=== PATIENT | male | born 1970 | race Caucasian/White ===

== ENCOUNTER → 2021-10-09 | Outpatient (CLI) | payer OTHER ==
--- NOTE | 2021-10-09 20:12 | CT ---
EXAMINATION TYPE: CT abdomen pelvis wo con DATE OF EXAM: 10/09/2021 COMPARISON: None available HISTORY: HEMATURIA, RLQ PAIN, RENAL STONE CT DLP: 1479.7 mGycm Automated exposure control for dose reduction was used. TECHNIQUE: Helical acquisition of images was performed from the lung bases through the pelvis. FINDINGS: LUNG BASES: COPD changes. LIVER/GB: Slightly nodular outline of the liver, please correlate with liver function tests and hepat ic viral serology. No definite hepatic focal lesion by this nonenhanced CT scan. Suspected gallbladde r sludge, please correlate with ultrasound results. PANCREAS: No significant abnormality is seen. SPLEEN: No significant abnormality is seen. ADRENALS: No significant abnormality is seen. KIDNEYS: 6 mm stone is seen within the right renal pelvis with surrounding soft tissue thickening and possibly urothelial thickening, likely chronic. Minimal prominence of the right renal collecting sys tem. Questionable tiny 2 mm left lower pole nonobstructing calculus. No other definite radiodense marj al, ureteric or urinary bladder calculi. No hydroureter or left sided hydronephrosis. Grossly unremar kable urinary bladder. Prostatic concretion. Unremarkable seminal vesicles. FREE AIR: No free air is visualized ADENOPATHY: No pathologically enlarged lymph nodes. OSSEOUS STRUCTURES: No gross aggressive bone lesion. BOWEL: Gastric sleeve surgery with fibrotic changes/fat stranding seen along the lateral aspect of t he stomach. Unremarkable duodenum and small bowel. Significant fecal loading of the colon suggestive of constipation, which may mask a small colonic lesion. OTHER: Scattered arterial atherosclerotic calcifications. No sizable ascites. IMPRESSION: 6 mm stone is seen within the right renal pelvis with mild dilatation of the right renal collecting s ystem and apparent soft tissue thickening/fat stranding surrounding the stone, possibly representing chronic stone. Associated chronic infection or urothelial lesion can't be excluded by this nonenhance d CT scan. Recommend correlation with urinalysis results including cytology. Other incidental finding s as described above.
== END | disposition home or self-care (01) ==
LOC: RADCTMAIN 18:17
PROVIDERS: ATTEND Family Medicine
DX: N20.0 Calculus of kidney (principal); N28.89 Other specified disorders of kidney and ureter; R31.9 Hematuria, unspecified
CPT/HCPCS: 74176

== ENCOUNTER → 2023-01-22 | Outpatient (CLI) | payer OTHER ==
--- NOTE | 2023-01-22 15:59 | CT ---
EXAMINATION TYPE: CT abdomen pelvis wo con DATE OF EXAM: 01/22/2023 COMPARISON: 10/09/2021 HISTORY: poss kidney stone. R flank pain CT DLP: 1338.20 mGycm Examination of the solid and hollow viscera is limited given the lack of contrast. FINDINGS: LUNG BASES: No evidence for nodule. No evidence for infiltrate. LIVER/GB: The gallbladder is unremarkable. No space-occupying hepatic lesion. PANCREAS: No pancreatic mass identified. No inflammatory process seen. SPLEEN: No evidence for splenomegaly. No intrasplenic lesions seen. ADRENALS: No adrenal nodules identified. No evidence for thickening. KIDNEYS: No evidence for renal mass. 3 mm nonobstructing calculus mid pole left kidney. No calculi ri ght kidney. No hydronephrosis seen bilaterally. BOWEL: Appendix has a normal appearance. No evidence of bowel obstruction. No inflammatory process. C hanges of gastric sleeve. Lymph nodes: No evidence for adenopathy greater than 1 cm. Abdominal aorta: Atheromatous changes seen. No evidence for aneurysm. Genital organs: No significant abnormality. Other: No significant abnormality. IMPRESSION: 1. 3 mm nonobstructing calculus mid pole left kidney. No calculi right kidney. No hydronephrosis see n bilaterally.
== END | disposition home or self-care (01) ==
LOC: RADCTMAIN 15:23
PROVIDERS: ATTEND Family Medicine
DX: N20.2 Calculus of kidney with calculus of ureter (principal); R31.9 Hematuria, unspecified
CPT/HCPCS: 74176

== ENCOUNTER → 2023-03-25 | Outpatient (CLI) | payer OTHER ==
[2023-03-25 11:06] LABS: Basophils # (A) 0.04 X 10*3/uL (0.00-0.10); Basophils % (A) 0.7 %; Eosinophils # (A) 0.13 X 10*3/uL (0.04-0.35); Eosinophils % (A) 2.2 %; HCT 46.3 % (39.6-50.0); HGB 15.9 d/dL (13.0-17.0); Lymphocytes # (A) 1.33 X 10*3/uL (0.90-5.00); Lymphocytes % (A) 22.7 %; MCH 31.6 pg (27.0-32.0); MCHC 34.3 d/dL (32.0-37.0); Mean Platelet Volume 10.8 FL (9.5-12.2); Monocytes # (A) 0.45 X 10*3/uL (0.20-1.00); Monocytes % (A) 7.7 %; NRBC Per 100 WBC 0 X 10*3/uL (0.00-0.01); Neutrophils # (A) 3.91 X 10*3/uL (1.80-7.70); Neutrophils % (A) 66.5 %; Platelet Count 117 X 10*3/uL (140-440); RBC 5.03 X 10*6/uL (4.40-5.60); RDW 14.1 % (11.5-14.5); WBC 5.87 X 10*3/uL (4.50-10.00)
[2023-03-25 17:17] LABS: ALT 40 U/L (10-49); AST 24 U/L (14-35); Albumin 4.7 d/dL (3.8-4.9); Albumin/Globulin Ratio 2.47 Ratio (1.60-3.17); Alkaline Phosphatase 139 U/L (41-126); BUN/Creat Ratio 18.38 Ratio (12.00-20.00); Blood Urea Nitrogen 14.7 mg/dL (9.0-27.0); Calcium 9.4 mg/dL (8.7-10.3); Carbon Dioxide 25.7 mmol/L (21.6-31.8); Chloride 104 mmol/L (96-109); Chol/HDL Ratio 2.74 Ratio; GGT 10 U/L (0-73); Globulin 1.9 d/dL (1.6-3.3); Glucose 100 mg/dL (70-110); LDL Cholesterol,Calculated 44.8 mg/dL (0.0-131.0); Phosphorus 3.3 mg/dL (2.4-5.1); Potassium 4.4 mmol/L (3.5-5.5); Sodium 140 mmol/L (135-145); T4, Free (Free Thyroxine) 1.37 ng/dL (0.80-1.80); Total Bilirubin 0.6 mg/dL (0.3-1.2); Total Protein 6.6 d/dL (6.2-8.2); VLDL Calculation 12.34 mg/dL (5.00-40.00)
== END | disposition home or self-care (01) ==
LOC: LABWHC1 07:40
PROVIDERS: ATTEND Family Medicine
DX: I10 Essential (primary) hypertension (principal); E11.9 Type 2 diabetes mellitus without complications; E03.9 Hypothyroidism, unspecified; E78.5 Hyperlipidemia, unspecified; E55.9 Vitamin D deficiency, unspecified
CPT/HCPCS: 36415; 80053; 80061; 82306; 82607; 82746; 82977; 83036; 84100; 84439; 84443; 85025